=== PATIENT | female | born 1965 | race Caucasian/White ===

== ENCOUNTER 2018-01-09 03:59 | Emergency (ER) | payer SELFPAY ==
[~2018-01-09] VITALS: Ht 160 cm; Wt 73.0 kg
[2018-01-09] MEDS ORDERED: KETOROLAC 60MG/2ML VIAL IM ONE (07:00)
[2018-01-09] MEDS ORDERED: ACETAMINOPHEN WITH CODEINE 300/30MG TABLET PO ONE (07:00)
[2018-01-09 07:54] VITALS: BP 92/68
== END 2018-01-09 07:57 | disposition home or self-care (01) ==
LOC: ER 03:59
DX: M79.602 Pain in left arm (principal); I51.9 Heart disease, unspecified; Z98.890 Other specified postprocedural states
CPT/HCPCS: 73030; 73060; 96372; 99284; J1885

== ENCOUNTER 2023-11-10 19:18 | Emergency (ER) | payer MEDICAID, OTHER ==
[~2023-11-10] VITALS: Ht 160 cm; Wt 63.0 kg
[2023-11-10 20:03] VITALS: O2SAT 100
[2023-11-10] MEDS: KETOROLAC 30MG/ML VIAL IM ONE (22:51)
[2023-11-10 23:29] LABS: BASOPHILS % 1.4 % (0.0-2.0); EOSINOPHILS % 1.8 % (0.0-5.0); HEMATOCRIT. 40.7 % (36.0-48.0); HEMOGLOBIN. 13.6 g/dL (12.0-16.0); LYMPHOCYTES % 41.1 % (20.0-50.0); MEAN CORPUSCULAR HEMOGLOBIN 27.7 pg (28.0-32.0); MEAN CORPUSCULAR HGB CONC 33.3 g/dL (31.0-37.0); MEAN PLATELET VOLUME 7.3 fl (7.4-10.4); MONOCYTES % 6.6 % (2.0-8.0); NEUTROPHILS % 49.1 % (40.0-76.0); PLATELET 259 x1000/uL (130-400); RED BLOOD CELL COUNT 4.91 mill/uL (4.2-5.4); RED CELL DISTRIBUTION WIDTH 14.6 % (11.6-14.6); WHITE BLOOD COUNT 7.8 x1000/uL (4.5-11.0)
[2023-11-10 23:51] LABS: ALANINE AMINOTRANSFERASE 15 IU/L (10-49); ALBUMIN 4.7 g/dL (3.2-4.8); ASPARTATE AMINOTRANSFERASE 27 IU/L (<34); BILIRUBIN TOTAL 0.7 mg/dL (0.1-1.0); CALCIUM 9.7 mg/dL (8.7-10.4); CARBON DIOXIDE 27 mEq/L (21-32); CHLORIDE 104 mEq/L (98-107); CREATINE KINASE 315 IU/L (34-145); CREATININE 0.8 mg/dL (0.6-1.0); GLUCOSE 123 mg/dL (70-105); POTASSIUM 4.1 mEq/L (3.5-5.1); PROTEIN TOTAL 8.5 g/dL (6.0-8.3); SODIUM 138 mEq/L (136-145); THYROID STIMULATING HORMONE 2.78 uIU/mL (0.55-4.78); UREA NITROGEN BLOOD 17 mg/dL (9-23)
[2023-11-10 23:59] LABS: TROPONIN I HIGH SENSITIVITY < 4 ng/L (3.0-34)
[2023-11-11] MEDS ORDERED: NAPR-681 MT (00:24)
[2023-11-11 00:30] VITALS: BP 113/74; PULSE 75; RESP 18; TEMP 97.8
== END 2023-11-11 00:30 | disposition home or self-care (01) ==
LOC: ER 19:18
DX: M79.602 Pain in left arm (principal); E11.9 Type 2 diabetes mellitus without complications; I10 Essential (primary) hypertension; Z98.890 Other specified postprocedural states
CPT/HCPCS: 80053; 82550; 84443; 85025; 84484; 36415; 93005; 96372; 99284; J1885; Z7610